=== PATIENT | female | born 1985 | race Caucasian/White ===

== ENCOUNTER → 2020-07-15 09:33 | Outpatient (BNVA) | payer BC, SELFPAY | PROVIDERS: PCP Internal Medicine; Referring Provider Internal Medicine; Visit Provider Internal Medicine | DX: E03.9 Hypothyroidism, unspecified (principal); E04.9 Nontoxic goiter, unspecified; E66.01 Morbid (severe) obesity due to excess calories; Z68.44 Body mass index [BMI] 60.0-69.9, adult; E73.9 Lactose intolerance, unspecified; K90.41 Non-celiac gluten sensitivity; K92.1 Melena; R13.10 Dysphagia, unspecified | CPT/HCPCS: 99205 ==

== ENCOUNTER 2020-08-01 12:37 | Outpatient (CLI) | payer BC, SELFPAY ==
--- NOTE | 2020-08-01 12:45 | US_ITS ---
WS: [id number] ULTRASOUND THYROID TECHNIQUE: Ultrasound of the thyroid. CLINICAL INFORMATION: thyroid enlargement and dyspahgia COMPARISON: None. FINDINGS: Thyroid: Right and left thyroid lobes are normal in size and echotexture. No thyroid nodules are pres ent. Right thyroid lobe: 3.0 cm x 1.0 cm x 1.8 cm Left thyroid lobe: 2.8 cm x 1.1 cm x 1.1 cm. Isthmus: 0.1 mm. Cervical lymphadenopathy: A few incidental lymph nodes. No cervical lymphadenopathy. US/US thyroid [id number] IMPRESSION: Normal thyroid ultrasound examination.
== END 2020-08-01 12:38 | disposition home or self-care (01) ==
PROVIDERS: PCP Internal Medicine; Visit Provider Internal Medicine
DX: E04.9 Nontoxic goiter, unspecified (principal); R13.10 Dysphagia, unspecified
CPT/HCPCS: 76536

== ENCOUNTER → 2020-09-16 09:36 | Outpatient (BNVA) | payer BC, SELFPAY | PROVIDERS: PCP Internal Medicine; Visit Provider Internal Medicine | DX: E03.9 Hypothyroidism, unspecified (principal); E04.1 Nontoxic single thyroid nodule; E66.01 Morbid (severe) obesity due to excess calories; Z68.44 Body mass index [BMI] 60.0-69.9, adult; E73.9 Lactose intolerance, unspecified; K90.41 Non-celiac gluten sensitivity; K92.1 Melena; R13.10 Dysphagia, unspecified; R63.5 Abnormal weight gain | CPT/HCPCS: 99214 ==

== ENCOUNTER 2020-12-14 17:35 | Emergency (ER) | payer BC, SELFPAY ==
[2020-12-14 18:04] VITALS: BP 137/87; PULSE 95; RESP 16; TEMP 36.8; O2SAT 94
--- NOTE | 2020-12-14 20:07 | XRR_ITS ---
PROCEDURE INFORMATION: Exam: XR Chest Exam date and time: 12/14/2020 8:07 PM Age: 35 years old Clinical indication: Cough; Additional info: Cough/sob TECHNIQUE: Imaging protocol: XR of the chest. Views: 1 view. Total images: 1 COMPARISON: No relevant prior studies available. FINDINGS: Lungs: No visible active interstitial or alveolar airspace disease. Pleural spaces: Unremarkable. No pleural effusion. No pneumothorax. Heart/Mediastinum: Unremarkable. No cardiomegaly. Bones/joints: Unremarkable. Soft tissues: Heavy body habitus. XR/XR chest 1V portable [id number] IMPRESSION: Nonacute.
[2020-12-14] MEDS: HYDROcodone-APAP 7.5-325 mg/15 mL UDC 7.5 ML PO (23:27)
--- NOTE | 2020-12-14 23:32 | W.ED.SOB ---
HPI - SOB/Dyspnea General: Chief Complaint: Shortness of Breath/Dyspnea Stated Complaint: TX FOR ALLERGIES THURS, GETTING WORSE Time Seen by Provider: 12/14/20 22:52 History of Present Illness: HPI Narrative: Patient is a previously healthy 35-year-old female with past medical history of hypothyroidism and obesity seen for 6 days of worsening cough, whole body myalgias, shortness of breath with exertion, headache, sore throat. She denies loss of smell or taste. She was told by her primary care physician that she was suffering from allergies. She has tried taking her ProAir without resolution of symptoms. She feels profound lightheadedness and shortness of breath when she walks. She states that she has never had temperature rising above 100, but has not been checking every day. She has been taking azithromycin and vitamin C at the request of her family physician. She has no other acute complaints. Associated symptoms: Reports nausea; Deny abdominal pain, hemoptysis or vomiting Review of Systems Const: Reports: chills, body aches and fatigue ENMT: Reports: throat pain Resp: Reports: dyspnea and non-productive cough; Denies: wheezing or hemoptysis GI: Reports: nausea; Denies: abdominal pain or vomiting PFSH ED PFSH: Medical History Anxiety Cholecystectomy planned Chronic post-traumatic stress disorder (PTSD) Fluid retention Obesity Surgical History History of removal of ovarian cyst History of tonsillectomy Family History Mother Chronic kidney disease (CKD) Diabetes Hyperlipidemia Hypertension Psychiatric illness CAD (coronary artery disease) Father Hypertension Thyroid disorder Hyperlipidemia Social History Smoking and tobacco status: never smoked Second hand smoke exposure: Yes Alcohol intake: never Physical Exam Const: COMMON NORMALS: no acute distress, patient oriented x3 and alert HENMT: COMMON NORMALS: normocephalic and atraumatic HEAD & SCALP: normocephalic and atraumatic Eye: COMMON NORMALS: Equal, round and reactive pupils present, EOMs intact bilaterally and no scleral icterus PUPIL: Yes Equal, round and reactive pupils present Resp: COMMON NORMALS: No retractions and clear to auscultation bilaterally EFFORT & INSPECTION: Yes tachypneic, No respiratory distress and No stridor AUSCULTATION: clear to auscultation bilaterally, no crackles, no rhonchi and no wheezes Cardio: COMMON NORMALS: regular rate, regular rhythm and No murmurs present (Cardio) RATE: regular rate RHYTHM: regular rhythm GI: COMMON NORMALS: Normal to inspection, nondistended, normoactive bowel sounds present, Soft to palpation and non-tender PALPATION: Yes Soft to palpation Neuro: COMMON NORMALS: patient oriented x3 SENSORIUM/ORIENTATION: Yes alert Skin: COMMON NORMALS: no rashes or lesions noted GENERAL SKIN EXAM: no rashes or lesions noted Course Vital Signs: Vital signs: Vital Signs Temperature 98.2 F 12/14/20 18:04 Pulse Rate 89 12/15/20 00:37 Respiratory Rate 20 H 12/15/20 00:37 Blood Pressure 130/81 12/15/20 00:37 Pulse Oximetry 93 12/15/20 01:34 MDM - SOB/Dyspnea MDM Narrative: Medical decision making narrative: Patient arrived mildly tachycardic, mildly hypoxic with oxygen saturation of 89% on room air. On 2 L nasal cannula, she is up to 92% and feels much better. After receiving a dose of hydrocodone, her coughing has remitted. She will be discharged home in stable and improved condition with a short course of hydrocodone and home oxygen. She knows she is always welcome back in the emergency department if her symptoms get worse before outpatient follow-up. Lab Data: Labs: Lab Results 12/14/20 Range/Units 23:30 SARS-CoV-2 Ag (Rap id) Positive H (Negative) Discharge Plan Discharge Patient Disposition: Home Clinical Impression: 2019 novel coronavirus disease (COVID-19), Hypoxia Condition: Stable Prescriptions: No Action levothyroxine [Synthroid] 200 mcg tablet 200 mcg PO DAILY RF: 0 hydrochlorothiazide 25 mg tablet 25 mg PO DAILY RF: 0 cholecalciferol (vitamin D3) 125 mcg (5,000 unit) capsule 125 mcg PO DAILY RF: 0 levomefolate calcium 7.5 mg tablet 7.5 mg PO DAILY RF: 0 montelukast 10 mg tablet 10 mg PO DAILY RF: 0 levocetirizine [Xyzal] 5 mg tablet 5 mg PO DAILY RF: 0 diclofenac sodium 25 mg tablet,delayed release (DR/EC) 25 mg PO .prn RF: 0 Discharge Orders: Discharge ED (Routine); Ordered 12/15/20 Ordered By: Rafael Jin Other Ambulatory Orders: DME: Oxygen (Order) Location: None Selected Ordered By: Rafael Jin Referrals: Imleda Denny DO [Primary Care Provider] - Discharge Diet: Regular Discharge Activity: Increase activity as tolerated Patient Instructions: Hypoxia (ED) Coding Level of Care Code ED Microfiche Duplicator for Chg Fwd Exam Detailed
[2020-12-14 23:40] VITALS: BP 117/80; PULSE 86; RESP 20; O2SAT 93
--- NOTE | 2020-12-15 00:10 | PC.NURSE ---
report to Wilman PINEDA
[2020-12-15 00:12] LABS: SARS Covid-2 Antigen Positive (Negative)
[2020-12-15 00:37] VITALS: BP 130/81; PULSE 89; RESP 20; O2SAT 93
[2020-12-15 01:34] VITALS: O2SAT 88; O2SAT 93; O2SAT 96
[2020-12-15 02:55] VITALS: BP 146/88; PULSE 89; RESP 18; O2SAT 96
== END 2020-12-15 02:55 | disposition home or self-care (01) ==
PROVIDERS: Emergency Provider Student in an Organized Health Care Education/Training Program; PCP Internal Medicine
DX: U07.1 COVID-19 (principal); R09.02 Hypoxemia; Z77.22 Contact with and (suspected) exposure to environmental tobacco smoke (acute) (chronic)
CPT/HCPCS: 71045; 87426; 99283

== ENCOUNTER → 2021-08-07 09:02 | Outpatient (BNVA) | payer BC, SELFPAY | PROVIDERS: PCP Internal Medicine; Visit Provider Obstetrics & Gynecology | DX: R30.0 Dysuria (principal); Z12.4 Encounter for screening for malignant neoplasm of cervix; N63.22 Unspecified lump in the left breast, upper inner quadrant | CPT/HCPCS: 81000; 87624 ==

== ENCOUNTER 2023-02-15 10:38 | Outpatient (CLI) | payer BC, MEDICAID, SELFPAY ==
--- NOTE | 2023-02-15 10:59 | US_ITS ---
WS: [id number] Pelvic ultrasound, 02/15/2023 Clinical Data: L PELVIC PAIN/CYST Comparison: None. Findings: The uterus measures 7.4 cm x 4.4 cm x 3.6 cm. The endometrium is 1.0 cm. No intrauterine or abnormal intrauterine mass is seen. The left ovary measures 2.7 cm x 2.3 cm x 1.4 cm with no cysts or masses. The right ovary measures 2.5 cm x 2.3 cm x 1.6 cm with no cysts or masses. There is no fluid in the cul-de-sac. Impression: Negative pelvic ultrasound.
--- NOTE | 2023-02-15 11:32 | MM_ITS ---
WS: [id number] DIAGNOSTIC BILATERAL DIGITAL BREAST TOMOSYNTHESIS MAMMOGRAPHY WITH CAD HISTORY: LT BR PAIN COMPARISON: None available. TECHNIQUE: Bilateral craniocaudad, mediolateral oblique, and mediolateral views are submitted with to mosynthesis and SM. Spot compression LEFT CC. Computer aided detection utilized. Breast composition: The breasts are almost entirely fatty. Palpable markers are placed along the medi al and lateral LEFT breast. No underlying masses are identified. Markers are placed in the area of pa in. There are additional benign oil cysts scattered throughout the RIGHT breast. There is a more aminah d mass measuring 7 mm along the inferior RIGHT breast near 6:00. IMPRESSION: Note: Patient was unable to 6 remain for ultrasound evaluation and did not return on the same day for follow-up ultrasound. MM/[place] [id number] BI-RADS: 0-Incomplete: Need additional imaging evaluation FOLLOW UP: Need Additional Imaging Ultrasound recommended bilateral breasts, limited.
== END 2023-02-15 10:39 | disposition home or self-care (01) ==
PROVIDERS: PCP Nurse Practitioner Family; Visit Provider Nurse Practitioner Family
DX: N64.4 Mastodynia (principal); R10.2 Pelvic and perineal pain; N94.89 Other specified conditions associated with female genital organs and menstrual cycle
CPT/HCPCS: 76830; 76856; 77062; G0279

== ENCOUNTER 2023-02-21 14:58 | Outpatient (CLI) | payer BC, MEDICAID, SELFPAY ==
--- NOTE | 2023-02-21 15:10 | US_ITS ---
WS: [id number] ULTRASOUND BILATERAL BREAST HISTORY: Follow-up pain LEFT breast and mass in RIGHT breast. COMPARISON: Mammogram 02/15/2023 TECHNIQUE: 2-D and Doppler. RIGHT: Hyperechoic mass identified by mammography is not identified by ultrasound. LEFT: Ultrasound is directed throughout the LEFT breast as indicated by the patient in the area of pa in. No abnormalities are identified. IMPRESSION: US/US breast BI limited* [id number] BI-RADS: 3-Probably Benign FOLLOW-UP: 6 Month Follow-up RIGHT mammogram follow-up in 6 months to reevaluate the new hyperdense mass in the RIGHT breast which is not visible by ultrasound.
== END 2023-02-21 14:59 | disposition home or self-care (01) ==
PROVIDERS: PCP Nurse Practitioner Family; Visit Provider Nurse Practitioner Family
DX: R92.8 Other abnormal and inconclusive findings on diagnostic imaging of breast (principal)
CPT/HCPCS: 76642

== ENCOUNTER → 2023-04-01 10:16 | Outpatient (BNVA) | payer BC, MEDICAID, SELFPAY | PROVIDERS: PCP Nurse Practitioner Family; Visit Provider Podiatrist Foot & Ankle Surgery | DX: M76.822 Posterior tibial tendinitis, left leg | CPT/HCPCS: 73630 ==

== ENCOUNTER 2023-08-27 09:04 | Outpatient (CLI) | payer BC, MEDICAID, SELFPAY ==
--- NOTE | 2023-08-27 09:13 | MM_ITS ---
WS: [id number] DIAGNOSTIC RIGHT DIGITAL TOMOSYNTHESIS MAMMOGRAPHY WITH CAD. HISTORY: ABNORMAL MAMMO R BREAST, 6-month follow-up. COMPARISON: 02/15/2023 Technique: CC, MLO and ML views. Spot compression RIGHT CC and MLO. Breast composition: There are scattered areas of fibroglandular density. High density mass in the kinga tral RIGHT breast near the 6:00 axis has decreased in size from 8.3 to 4.0 mm. The additional rounded masses and calcifications are stable. Benign oil cysts. IMPRESSION: MM/[place] [id number] BI-RADS: 3-Probably Benign FOLLOW UP 6 Month Follow-up Patient to return in 6 months for annual mammography. The high density mass in the RIGHT breast can be reevaluated at that time.
== END 2023-08-27 09:05 | disposition home or self-care (01) ==
LOC: RAD 09:04
PROVIDERS: PCP Nurse Practitioner Family; Visit Provider Nurse Practitioner Family
DX: R92.8 Other abnormal and inconclusive findings on diagnostic imaging of breast (principal); N63.15 Unspecified lump in the right breast, overlapping quadrants
CPT/HCPCS: 77061; G0279

== ENCOUNTER 2023-10-16 06:36 | Day surgery (SDC) | payer BC, MEDICAID, SELFPAY ==
[2023-10-16 06:47] VITALS: BP 153/89; PULSE 89; RESP 18; TEMP 36.1; O2SAT 99; BMI 63.8
--- NOTE | 2023-10-16 07:06 | P.ANESASSM_ITS ---
Pre-Anesthetic Assessment Height/Weight: Height 1.63 m Weight 168.736 kg Temp Pulse Resp BP Pulse Ox O2 Del Method 97.0 F L 89 18 153/89 99 Room Air 10/16/23 06:47 10/16/23 06:47 10/16/23 06:47 10/16/23 06:47 10/16/23 06:47 10/16/23 06:47 Preop Diagnosis: Anorectal Pain, GERD Operation Date: 10/16/23 07:30 Proposed Procedures p EGD(Not Applicable) - Scot Bailey DO s Colonoscopy(Not Applicable) - Scot Bailey DO Familial anesthetic complications: PONV Was Beta Jhonatan taken within 24 hours: N/A Was Clonidine taken within 24 hours: N/A Last intake: Intake Last Liquid Date 10/15/23 Last Liquid Time 23:00 Last Solid Date 10/14/23 Last Solid Time 22:00 Social No alcohol and No tobacco Exam alert, oriented x 3, clear to auscultation bilaterally and regular rate & rhythm Airway Submandibular: within normal limits Cervical ROM: within normal limits Mallampati: Class I Dentition: full Pulmonary None reported CV/HEM None reported HCTZ for fluid retention per patient None reported Hepatic None reported GI Gastroesophageal Reflux Disease Metabolic Morbid Obesity and Thyroid Disease [facility] [place] None reported Neuropsych Anxiety and Depression PTSD Anesthetic Plan ASA status: 3 Anesthesia: MAC Medications/Allergies Home Medications Medication Instructions Recorded Confirmed Last Taken Type cholecalciferol (vitamin D3) 125 125 mcg PO DAILY 07/15/20 10/16/23 10/09/23 History mcg (5,000 unit) capsule hydrochlorothiazide 25 mg tablet 25 mg PO DAILY 07/15/20 10/16/23 10/15/23 History levothyroxine 200 mcg tablet 200 mcg PO DAILY 07/15/20 10/16/23 10/16/23 History (Synthroid) fluconazole 150 mg tablet 150 mg PO DAILY 08/07/21 10/16/23 10/11/23 History (Diflucan) levocetirizine 5 mg tablet (Xyzal) 5 mg PO DAILY 08/07/21 10/16/23 10/15/23 History AFO to the Left #1 ea 04/02/23 10/14/23 Unknown Rx hydroxyzine HCl 25 mg tablet 25 mg PO Q8H PRN Anxiety 10/16/23 10/16/23 10/15/23 History Allergies Allergy/AdvReac Type Severity Reaction Status Date / Time casein Allergy Intermediate ADR-Diarrhe Verified 10/16/23 06:44 a gluten Allergy Intermediate constipatio Verified 10/16/23 06:44 n levothyroxine Allergy Mild Unresponsiv Verified 10/16/23 06:44 e promethazine [From Phenergan] Allergy vomiting Verified 10/16/23 06:44 [facility] Anesthesia Medical History Celiac disease Obesity Chronic post-traumatic stress disorder (PTSD) Anxiety Fluid retention Cholecystectomy planned Surgical History History of cholecystectomy History of removal of ovarian cyst x3 different times History of tonsillectomy History of removal of ovarian cyst Family History Mother Chronic kidney disease (CKD) Diabetes Hyperlipidemia Hypertension Psychiatric illness CAD (coronary artery disease) Clotting disorder Father Hypertension Thyroid disease Hyperlipidemia Diabetes Sister Diabetes Denies family history of Bleeding disorder Cancer Stroke Social History Smoking and tobacco/nicotine status: never used tobacco/nicotine Second hand smoke exposure: Yes Alcohol intake: never Female Reproductive History Date of last menstrual period: 10/01/23 Data Anesthesia Cardiac Studies: No Data to Display
[2023-10-16] MEDS: sodium chloride 0.9% 1,000 ML 30 ML IV (07:21)
--- NOTE | 2023-10-16 07:27 | PM.HP ---
Providers/Chief Complaint Primary Care Provider: Ophelia Cosby Chief Complaint: K21.9, K62.89, K92.2 History of Present Illness Nilam Schafer is a 38 year old female Review of Systems General: Reports: 10 or more systems reviewed and unremarkable except in HPI and below Medications/Allergies Home Medications Medication Instructions Recorded Confirmed Last Taken Type cholecalciferol (vitamin D3) 125 125 mcg PO DAILY 07/15/20 10/16/23 10/09/23 History mcg (5,000 unit) capsule hydrochlorothiazide 25 mg tablet 25 mg PO DAILY 07/15/20 10/16/23 10/15/23 History levothyroxine 200 mcg tablet 200 mcg PO DAILY 07/15/20 10/16/23 10/16/23 History (Synthroid) fluconazole 150 mg tablet 150 mg PO DAILY 08/07/21 10/16/23 10/11/23 History (Diflucan) levocetirizine 5 mg tablet (Xyzal) 5 mg PO DAILY 08/07/21 10/16/23 10/15/23 History AFO to the Left #1 ea 04/02/23 10/14/23 Unknown Rx hydroxyzine HCl 25 mg tablet 25 mg PO Q8H PRN Anxiety 10/16/23 10/16/23 10/15/23 History Allergies Allergy/AdvReac Type Severity Reaction Status Date / Time casein Allergy Intermediate ADR-Diarrhe Verified 10/16/23 06:44 a gluten Allergy Intermediate constipatio Verified 10/16/23 06:44 n levothyroxine Allergy Mild Unresponsiv Verified 10/16/23 06:44 e promethazine [From Phenergan] Allergy vomiting Verified 10/16/23 06:44 PFSH Acute PFSH: Medical History Celiac disease Obesity Chronic post-traumatic stress disorder (PTSD) Anxiety Fluid retention Cholecystectomy planned Surgical History History of cholecystectomy History of removal of ovarian cyst x3 different times History of tonsillectomy History of removal of ovarian cyst Family History Mother Chronic kidney disease (CKD) Diabetes Hyperlipidemia Hypertension Psychiatric illness CAD (coronary artery disease) Clotting disorder Father Hypertension Thyroid disease Hyperlipidemia Diabetes Sister Diabetes Denies family history of Bleeding disorder Cancer Stroke Social History Smoking and tobacco/nicotine status: never used tobacco/nicotine Second hand smoke exposure: Yes Alcohol intake: never Female Reproductive History: Date of last menstrual period: 10/01/23 Vitals/I&O/Wt Last Vital Signs Temp 97.0 F L 10/16/23 06:47 Pulse 89 10/16/23 06:47 Resp 18 10/16/23 06:47 BP 153/89 10/16/23 06:47 Pulse Ox 99 10/16/23 06:47 O2 Del Method Room Air 10/16/23 06:47 Weight last 48 hrs Weight 372 lb A&P Assessment and plan (1) GI bleed: Plan EGD and colonoscopy Attestations Medical Necessity Statement*: Home Coding Level of Care Code Acute Code for Chg Fwd Diagnoses GI bleed K92.2
[2023-10-16 07:34] LABS: OR HCG Qualitative Urine Negative (Negative)
[2023-10-16 07:52] VITALS: BP 120/75; PULSE 85; RESP 12; TEMP 36.1; O2SAT 97
[2023-10-16 08:10] VITALS: BP 121/102; PULSE 76; RESP 16; O2SAT 96
[2023-10-16 08:15] VITALS: BP 125/81; PULSE 79; RESP 16; O2SAT 97
--- NOTE | 2023-10-16 08:30 | ANE.PACU2 ---
Inpatient post-anesthesia follow up: Airway intact: Yes Vital signs: Temperature 97.0 F Pulse Rate 79 Respiratory Rate 16 Blood Pressure 125/81 Pulse Oximetry 97 Oxygen Delivery Me thod Room Air Oxygen Flow Rate Fraction of Inspir ed Oxygen Hydration adequate: Yes Nausea and vomiting: No Pain level: 1 Mental status: Baseline
== END 2023-10-16 08:30 | disposition home or self-care (01) ==
PROVIDERS: Anesthesiology; PCP Nurse Practitioner Family; Visit Provider Surgery
PROC: 0DJ08ZZ Inspection of Upper Intestinal Tract, Via Natural or Artificial Opening Endoscopic (ICD-10-PCS; CPT 43235; principal; 2023-10-16 07:30)
PROC: 0DJD8ZZ Inspection of Lower Intestinal Tract, Via Natural or Artificial Opening Endoscopic (ICD-10-PCS; CPT 45378; 2023-10-16 07:30)
DX: K62.89 Other specified diseases of anus and rectum (principal); K29.50 Unspecified chronic gastritis without bleeding; K21.9 Gastro-esophageal reflux disease without esophagitis; E66.9 Obesity, unspecified; Z68.44 Body mass index [BMI] 60.0-69.9, adult; E66.01 Morbid (severe) obesity due to excess calories; K64.8 Other hemorrhoids
CPT/HCPCS: 43239; 45378; 81025; 88305; J2704; J7030

== ENCOUNTER → 2023-12-10 15:41 | Outpatient (BNVA) | payer BC, MEDICAID, SELFPAY | PROVIDERS: PCP Nurse Practitioner Family; Visit Provider Surgery | DX: K29.70 Gastritis, unspecified, without bleeding (principal); B96.81 Helicobacter pylori [H. pylori] as the cause of diseases classified elsewhere | CPT/HCPCS: 87338 ==

== ENCOUNTER 2024-04-10 15:05 | Emergency (ER) | payer BC, MEDICAID, SELFPAY ==
[2024-04-10 15:10] VITALS: BP 181/102; PULSE 69; RESP 22; TEMP 36.4; O2SAT 99
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
[2024-04-10 15:42] VITALS: BP 131/63; PULSE 70
[2024-04-10 16:25] LABS: Blood Gas Sample Type Arterial; Methemoglobin 0.5 % (0.4-1.5); Oxygen Device ROOM AIR
[2024-04-10 16:44] LABS: Alveolar-Arterial Oxygen Gradi 1.6 mmHg (5-10); Arterial Blood Gas Hematocrit 36.9 % (37-47); Blood Gas Allen Test Pos; Blood Gas Operator Identificat MONRO; Blood Gas Sample Site Brachial, right; Carboxyhemoglobin 0.7 %THgb (0.4-20.1); HGB O2 Sat 97.1 % (95-100)
[2024-04-10 18:00] VITALS: BP 123/87; O2SAT 100
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
[2024-04-10 18:07] VITALS: BP 123/81; PULSE 76; O2SAT 99
== END 2024-04-10 18:09 | disposition home or self-care (01) ==
PROVIDERS: Emergency Provider Emergency Medicine; PCP Nurse Practitioner Family
DX: T59.811A Toxic effect of smoke, accidental (unintentional), initial encounter (principal); Y92.009 Unspecified place in unspecified non-institutional (private) residence as the place of occurrence of the external cause
CPT/HCPCS: 36600; 71045; 82810; 99284

== ENCOUNTER 2024-05-18 09:00 | Outpatient (CLI) | payer BC, MEDICAID, SELFPAY ==
--- NOTE | 2024-05-18 09:14 | MM_ITS ---
WS: [id number] DIAGNOSTIC BILATERAL DIGITAL BREAST TOMOSYNTHESIS MAMMOGRAPHY WITH CAD HISTORY: R BREAST ABNORMAL MAMMOGRAM, 6-month follow-up. COMPARISON: 08/27/2023, 02/15/2023, ultrasound 02/21/2023 TECHNIQUE: Bilateral craniocaudad, mediolateral oblique, and mediolateral views are submitted with to mosynthesis and SM. RIGHT CC spot compression. Computer aided detection utilized. Breast composition: There are scattered areas of fibroglandular density. Numerous oil cysts are noted throughout the RIGHT breast. The high density mass previously described near 6:00 in the central breast is unchanged measuring 4 mm. This mass has decreased in size since 02/15/2023. There are no new or enlarging masses. No suspicious distortion. MM/MM diag BI tomosynthesis [id number] IMPRESSION: BI-RADS: 2 - Benign. FOLLOW UP: 1 Year Follow-up
== END 2024-05-18 09:09 | disposition home or self-care (01) ==
PROVIDERS: PCP Nurse Practitioner Family; Visit Provider Nurse Practitioner Family
DX: N60.11 Diffuse cystic mastopathy of right breast (principal); R92.323 Mammographic fibroglandular density, bilateral breasts
CPT/HCPCS: 77062; G0279

== ENCOUNTER 2024-06-23 11:45 | Outpatient (CLI) | payer BC, MEDICAID, SELFPAY ==
--- NOTE | 2024-06-23 12:02 | US_ITS ---
WS: [id number] THYROID ULTRASOUND HISTORY: HYPOTHYROIDISM COMPARISON: 08/01/2020 Right lobe: 1.1 cm x 1.3 cm x 4.5 cm (w x ap x l). Volume: 3.2 cm3. Normal size and echotexture. No significant are dominant nodules are present. Left lobe: 1.2 cm x 1.4 cm x 4.5 cm (w x ap x l). Volume: 3.6 cm3. Normal size and echotexture. No significant or dominant nodules are present. Isthmus: 0.2 cm. US/US thyroid [id number] IMPRESSION: Normal thyroid ultrasound.
== END 2024-06-23 11:55 | disposition home or self-care (01) ==
PROVIDERS: PCP Nurse Practitioner Family; Visit Provider Nurse Practitioner Family
DX: E03.9 Hypothyroidism, unspecified (principal)
CPT/HCPCS: 76536

== ENCOUNTER → 2024-12-29 15:43 | Outpatient (BNVA) | payer BC, MEDICAID, SELFPAY | PROVIDERS: PCP Family Medicine; Visit Provider Family Medicine | DX: E03.9 Hypothyroidism, unspecified (principal); M25.50 Pain in unspecified joint; L68.0 Hirsutism | CPT/HCPCS: 80053; 82670; 83525; 84403; 84439; 84443; 85025; 85651; 86038; 86140; 86200; 86431 ==